=== PATIENT | male | born 1985 | race American Indian/Alaskan Native ===

== ENCOUNTER 2021-08-07 20:27 | Emergency (ER) | payer BC, SELFPAY ==
[~2021-08-07] VITALS: Ht 175.3 cm; Wt 81.6 kg
[2021-08-07 21:05] VITALS: BP 137/79
[2021-08-07] MEDS ORDERED: EMTR1TAB12 PO (21:47)
[2021-08-07 21:53] VITALS: BP 137/79
--- NOTE | 2021-08-07 21:54 | NUR ---
Patient discharged with v/s stable. Written and verbal after care instructions given and explained. Patient verbalized understanding. Ambulatory with steady gait. All questions addressed prior to discharge. Advised to follow up with PMD.
== END 2021-08-07 21:54 | disposition home or self-care (01) ==
LOC: MED 20:27
DX: K13.0 Diseases of lips (principal); Z11.3 Encounter for screening for infections with a predominantly sexual mode of transmission
CPT/HCPCS: 99283